=== PATIENT | male | born 2000 | race Caucasian/White ===

== ENCOUNTER 2025-07-11 13:17 | Emergency (ER) | payer MEDICAID ==
[~2025-07-11] VITALS: Ht 180.3 cm; Wt 86.4 kg
[2025-07-11 13:21] VITALS: BP 162/91; PULSE 95; TEMP 98; O2SAT 99
--- NOTE | 2025-07-11 13:25 | Physician Documentation ---
History of Present Illness ~ Stated Complaint: EYE PAIN Time Seen by MD: 14:01 [facility] 25-year-old male presents to the emergency department reporting that he was grinding some metal yesterday. Woke up this morning with significant pain and redness to the right eye. Blurry vision. Denies other symptoms or concerns. Medication Reconciliation Allergies: Coded Allergies: No Known Allergies (Unverified , 07/11/25) Scheduled Erythromycin Base Opth. Ointment* (Erythromycin Opth. Ointment*), 1 APPLIC RIGHTEYE Q4HWA Review of Systems ROS As stated above in the HPI, otherwise all systems are reviewed and negative. Physical Exam Physical Exam General: Alert, no apparent distress. HEENT: PERRL, EOMI, no injection, moist mucous membranes. (+) injection right eye. No obvious foreign body seen during exam in triage. No foreign body with wood's lamp exam, but small corneal abrasion visible. Neck: Full range of motion. Respiratory: Lungs clear, no respiratory distress. Chest: No accessory muscle use. Cardiovascular: Regular rate and rhythm, no murmurs. Gastrointestinal: Soft, nontender, nondistended. Bowels sounds present. Extremities: Normal range of motion, no deformity. Neurologic: Oriented x4. Psychiatric: Normal mood and affect. Skin: Normal color, warm and dry. No edema, no ecchymosis. Procedures Procedures Procaine 2 gtts right eye and then fluoroscein applied for wood's lamp exam. Small corneal abrasion visualized medial aspect of right eye. No foreign body seen. Progress Results/Orders Results/Orders Orders - RADHA NGUYEN ROUSTABOUT HEAD Eye Procedure (07/11/25 13:46) Completed Orders - RADHA NGUYEN ROUSTABOUT HEAD Proparacaine Ophth Solution (Alcaine Oph (07/11/25 13:50) Fluorescein 1mg Ophthal Strip (Ful-Skye O (07/11/25 13:50) Vital Signs 07/11/25 13:21 Temp 98.0 Pulse 95 Resp 15 B/P (MAP) 162/91 Pulse Ox 99 Medical Decision Making Eye Diff. Dx: Considerations: Include: [place], Conjuctivits-allergic, Conjuctivitis-bacterial, Conjuctivits-chlamydial, Conjuctivitis-viral, Corneal abrasion, Corneal laceration, Corneal ulceration, Foreign body-conjuctiva, Foreign body-corneal, Foreign body-intraocular, Foreign body-lid, Glaucoma, Globe rupture, Hordeolum, Iritis, Orbital cellulitis, Periobital cellulitis, Retinal artery occulsion, Retinal vein occlusion, Rust ring, Subconjunctival hem, Ultraviolet keratitis, Uveitis, Vitreous hemorrhage Departure Time of Disposition: 14:12 Impression: Primary Impression: Corneal abrasion Condition: Stable Discharge Instructions: Corneal Abrasion Additional Instructions: Keep eye clean and covered. Use the antibiotic ointment as prescribed. See an eye doctor soon. Return if worse. Referrals: NO PRIMARY CARE PROVIDER (PCP) Prescriptions Erythromycin Base Opth. Ointment* (Erythromycin Opth. Ointment*) 1 Gm T[facility] 1 [facility] #1 EACH Prov: RADHA NGUYEN NP 07/11/25 Education Educated: Patient, Family Educated regarding: diagnosis, treatment, prognosis, need for follow up Signature Scribe Signature: x Attestation: The note accurately reflects work and decisions made by me.Radha Santos NP 07/11/25 13:24 RADHA NGUYEN NP Jul 11, 2025 13:25
[2025-07-11] MEDS: fluorescein sod 1mg ophthalmic strip RIGHTEYE ONE (13:55)
[2025-07-11] MEDS: proparacaine 0.5% ophthalmic drops 15ml RIGHTEYE ONE (13:55)
[2025-07-11] MEDS ORDERED: ERYT1OIN6 RIGHTEYE (14:12)
[2025-07-11 14:21] VITALS: RESP 16
== END 2025-07-11 14:27 | disposition home or self-care (01) ==
LOC: ER 13:18
DX: S05.01XA Injury of conjunctiva and corneal abrasion without foreign body, right eye, initial encounter (principal); W22.8XXA Striking against or struck by other objects, initial encounter; Y93.89 Activity, other specified; Y92.89 Other specified places as the place of occurrence of the external cause; Y99.8 Other external cause status
CPT/HCPCS: 99283